=== PATIENT | female | born 1960 | race Caucasian/White ===

== ENCOUNTER 2023-08-05 13:22 | Emergency (ER) | payer OTHER ==
[~2023-08-05] VITALS: Ht 162.6 cm; Wt 81.8 kg
[2023-08-05 14:07] VITALS: BP 119/71; PULSE 101; RESP 18; TEMP 97.5; O2SAT 99
[2023-08-05] MEDS: KETOROLAC 30 MG/ML VIAL IM ONE (15:23)
[2023-08-05 15:34] VITALS: BP 120/70; PULSE 98; RESP 18; TEMP 97.6; O2SAT 99
[2023-08-05] MEDS ORDERED: NAPR-337 PO (16:14)
== END 2023-08-05 16:20 | disposition home or self-care (01) ==
LOC: MED 13:22
DX: M25.511 Pain in right shoulder (principal); Z79.899 Other long term (current) drug therapy
CPT/HCPCS: 73030; 96372; 99283; J1885